=== PATIENT | female | born 1980 | race Native Hawaiian/Other Pacific Islander ===

== ENCOUNTER 2020-09-18 14:26 | Emergency (ER) | payer OTHER ==
[~2020-09-18] VITALS: Ht 162.6 cm; Wt 72.6 kg
[2020-09-18 18:01] VITALS: BP 120/74; TEMP 98.3
== END 2020-09-18 18:01 | disposition home or self-care (01) ==
LOC: ED 14:26
DX: G43.D0 Abdominal migraine, not intractable (principal); R11.2 Nausea with vomiting, unspecified
CPT/HCPCS: 81000; 96360; 96375; 99284; J1885; J2060; J2405; J2765